=== PATIENT | male | born 1980 | race African-American/Black ===

== ENCOUNTER 2019-05-01 20:53 | Emergency (ER) | payer MEDICAID ==
[~2019-05-01] VITALS: Ht 172.7 cm; Wt 79.4 kg
--- NOTE | 2019-05-01 21:05 | NUR ---
patient came into ER department ambulatory and statd he was homeless. Patient stated he is ahving chest pain that he describes as sharp and radiates to left arm. patient states his pain is at a 8, on a scale from 0-10. Patient placed on bedside monitor. Dr. juarez at bedside evaluating patient.
[2019-05-01 21:24] LABS: EOSINOPHILS # (AUTO) 0.2 K/uL (0.0-0.7); EOSINOPHILS % (AUTO) 3.6 % (0.0-7.0); HEMATOCRIT 37.4 % (36.7-47.1); HEMOGLOBIN 11.9 g/dL (12.5-16.3); LYMPHOCYTES # (AUTO) 1.3 K/uL (20.0-40.0); LYMPHOCYTES % (AUTO) 26.9 % (20.5-51.5); MEAN CORPUSCULAR HEMOGLOBIN 24.6 uug (23.8-33.4); MEAN CORPUSCULAR HGB CONC 32 g/dL (32.5-36.3); MEAN CORPUSCULAR VOLUME 77.3 fL (73.0-96.2); MONOCYTES # (AUTO) 0.5 K/uL (2.0-10.0); MONOCYTES % (AUTO) 10.3 % (0.0-11.0); NEUTROPHILS # (AUTO) 2.9 K/uL (1.8-8.9); NEUTROPHILS % (AUTO) 58.2 % (38.5-71.5); PLATELET COUNT (AUTO) 335 K/uL (152-348); RED BLOOD CELL COUNT(AUTO) 4.84 MIL/uL (4.06-5.63)
[2019-05-01 21:32] LABS: POTASSIUM 3.9 mmol/L (3.5-5.1)
[2019-05-01] MEDS ORDERED: LIDOCAINE HCL 2% 20 ML VIAL ONE (21:46)
[2019-05-01] MEDS ORDERED: ASPIRIN 81 MG TAB.CHEW ONE (21:46)
[2019-05-01] MEDS ORDERED: MAG HYDROX/AL HYDROX/SIMETH 30 ML LIQUID UDC ONE (21:47)
[2019-05-01 21:48] LABS: BILIRUBIN,DIRECT 0.1 mg/dL (0.0-0.2); BILIRUBIN,TOTAL 0.1 mg/dL (0.2-1.0); TOTAL PROTEIN, SERUM 6.9 g/dL (6.4-8.2)
[2019-05-01] MEDS: ASPIRIN 81 MG TAB.CHEW PO ONE (21:49)
[2019-05-01] MEDS: MAG HYDROX/AL HYDROX/SIMETH 30 ML LIQUID UDC PO ONE (21:49)
[2019-05-01] MEDS ORDERED: LIDOCAINE VISCUS 2% 15 ML UDC ONE (21:50)
[2019-05-01] MEDS: LIDOCAINE VISCUS 2% 15 ML UDC MM ONE (21:51)
[2019-05-02 02:43] VITALS: BP 124/61
--- NOTE | 2019-05-02 02:43 | NUR ---
Patient discharged to home in stable conditon. Written and verbal after care instructions given. Patient verbalizes understanding of instructions. . patient self ambulatory with steady gait. Exit care package and personal belonings taken home with the patient at discharge. Patient denies any pain/discomfort at this time. Education provided prior to discharge. Homeless checklist done prior to discharge. provided patient with food, clothing and resources. patient stated he wishes to wait in the ER department waiting room till the morning to speak to rn social work for placement.
--- NOTE | 2019-05-02 10:02 | NUR ---
8:45am: LAZARUS received a voicemail message from ED RN Juan David requesting a SS consultation. LAZARUS called RN Juan David back at 8:55am, and Dionnei informed this SW that patient was no longer in the waiting room and had chosen to leave. SW informed RN Juan David to let SW know if patient returns. RN Juan David expressed agreement.
== END 2019-05-02 02:46 | disposition home or self-care (01) ==
LOC: ER 20:56
DX: R07.89 Other chest pain (principal); F17.210 Nicotine dependence, cigarettes, uncomplicated
CPT/HCPCS: 36415; 70030-TC; 71045; 85025; 93005; A4663; J3490